=== PATIENT | female | born 1950 | race Two or more races ===

== ENCOUNTER 2019-04-01 17:08 | Emergency (ER) | payer MEDICARE, BC ==
[~2019-04-01] VITALS: Ht 162.6 cm; Wt 59.0 kg
[2019-04-01] MEDS ORDERED: ACETAMINOPHEN ES 500 MG TABLET PO ONE (17:30)
[2019-04-01] MEDS ORDERED: ACETAMINOPHEN ES 500 MG TABLET ONE (17:44)
[2019-04-01] MEDS ORDERED: NEOMY/BACITRA/POLYMYXIN B OINT UD PACKET TP ONE ×2 (17:51→18:00)
--- NOTE | 2019-04-01 17:55 | NUR ---
Patient discharged to home in stable conditon. Written and verbal after care instructions given. Patient verbalizes understanding of instructions.PT WITH SISTER, NOT DRIVING.
[2019-04-01 17:57] VITALS: BP 121/69
== END 2019-04-01 18:13 | disposition home or self-care (01) ==
LOC: ER 17:14
DX: S00.83XA Contusion of other part of head, initial encounter (principal); F41.9 Anxiety disorder, unspecified; F32.9 Major depressive disorder, single episode, unspecified; W01.198A Fall on same level from slipping, tripping and stumbling with subsequent striking against other object, initial encounter; Y93.89 Activity, other specified; Y92.89 Other specified places as the place of occurrence of the external cause; Y99.8 Other external cause status
CPT/HCPCS: 70450; A4663; A9150